=== PATIENT | female | born 1995 | race Caucasian/White ===

== ENCOUNTER 2024-07-14 08:35 | Emergency (ER) | payer OTHER, SELFPAY ==
[2024-07-14 08:49] VITALS: BP 130/96
--- NOTE | 2024-07-14 08:52 | ED.GENMED ---
ED Provider Triage
<Graham Lazar PA-C - Last Filed: 07/14/24 08:53>
-
Patient seen by provider in Triage?: Seen in Triage
Attestation: A medical screening examination has been initiated by a qualified medical provider. Based on the assessment performed at this time, it has been determined that an emergent medical condition may exist and the patient has been informed
that further medical evaluation and possible additional diagnostic testing may be needed.
HPI: 28-year-old female presents for evaluation of right lower quadrant abdominal pain. Pain began in the left with migrated to the right over the past 24 hours. Had diarrhea for the past 2 days but none today. No nausea or vomiting. Prior
abdominal surgery includes right inguinal hernia. No fevers or chills. No hematochezia
GENERAL: Alert , in no apparent distress
EYE: No visual abnormalities.
NECK: Trachea midline
ENT: No visible abnormalities.
LUNGS: No acute respiratory distress
NEUROLOGICAL: Alert and oriented
SKIN: Skin intact. No visible changes.
MUSCULOSKELETAL: Moving extremities normally
PSYCH: Normal and appropriate interaction.
This is a medical evaluation conducted in person to initiate diagnostic evaluation and provide initial therapeutics. Please see further documentation by the treating clinician.
History of Present Illness
<Graham Lazar PA-C - Last Filed: 07/14/24 08:53>
General
Chief Complaint: Abdominal Pain
Time Seen by Provider: 07/14/24 10:23
<Mimi Chambers PA-C - Last Filed: 07/14/24 15:40>
General
Source: patient
Exam Limitations: none
History of Present Illness
History of Present Illness:
28yoF with no significant past medical history presenting for evaluation of abdominal pain. Patient started with diarrhea 2-3 days ago as well as pain in her left lower quadrant. She initially thought she may have an ovarian cyst as she has a
history of this. The pain migrated to the right lower quadrant yesterday. Pain is worse with movement and coughing. She is also having some discomfort in her right lower back. Diarrhea has resolved. She had the urge to urinate frequently last
night but denies any dysuria. She denies any fevers, nausea, vomiting, vaginal bleeding, vaginal discharge. Previous abdominal surgeries include a right inguinal hernia repair as a child.
Phy Exam
<Mimi Chambers PA-C - Last Filed: 07/14/24 15:40>
General Physical Exam
General Presentation: well appearing and no apparent distress
General age: appears stated age
General Skin: warm and dry
General Habitus: normal
General Mental: alert
ENT Exam
ENT Exam: normocephalic
Pulmonary Exam
Pulmonary Exam: no respiratory distress
Gastrointestinal Exam
Gastrointestinal Exam: soft, non distended and other (+Mild RLQ tenderness. Abdomen soft, non-distended. No rebound or guarding noted. )
Neurological Exam
Neurological Exam: alert
Geoff Coma Scale
Eye Opening: Spontaneous
Verbal Response: Oriented
Motor Response: Obeys Commands
GCS Total Score: 15
Skin Exam
Skin Exam: normal color and warm/dry
Psychiatric Exam
Psychiatric Exam: normal mood/affect
Course
<Graham Lazar PA-C - Last Filed: 07/14/24 08:53>
Orders/Labs/Results
Orders:
Orders
07/14/24 08:52
CT Abd/Pel (IV only)-[facility] only Urgent
Comment:
Reason For Exam: RLQ pain
07/14/24 08:53
Test Result ONCE
07/14/24 09:00
Complete Blood Count/With Diff Urgent
Comprehensive Metabolic Panel Urgent
HCG, Serum Qualitative Screen Urgent
Lipase Urgent
07/14/24 11:09
Pelvis & Transvaginal US [US Pelvis W Transvag Combined] Urgent
Comment:
Reason For Exam: lower abd pain, abnormal CT
07/14/24 12:41
Urinalysis Reflex To Culture Urgent
Date Specimen was Collected: 07/14/24
Time Specimen was Collected: 11:19
Abnormal Lab Results
07/14/24
09:00
Glucose 104 H mg/dl
(70-99)
07/14/24 09:00
07/14/24 09:00
Vital Signs
Initial and Last Documented VS:
Initial Vital Signs
Temp Pulse Resp BP Pulse Ox
99.7 F 91 16 130/96 98
07/14/24 08:49 07/14/24 08:49 07/14/24 08:49 07/14/24 08:49 07/14/24 08:49
Last Documented Vital Signs
Temp Pulse Resp BP Pulse Ox
99.7 F 73 18 113/72 96
07/14/24 08:49 07/14/24 13:55 07/14/24 13:55 07/14/24 13:55 07/14/24 13:55
Juliánlt;Mimi Chambers PA-C - Last Filed: 07/14/24 15:40>
Orders/Labs/Results
Orders:
Orders
07/14/24 08:52
CT Abd/Pel (IV only)-[facility] only Urgent
Comment:
Reason For Exam: RLQ pain
07/14/24 08:53
Test Result ONCE
07/14/24 09:00
Complete Blood Count/With Diff Urgent
Comprehensive Metabolic Panel Urgent
HCG, Serum Qualitative Screen Urgent
Lipase Urgent
07/14/24 11:09
Pelvis & Transvaginal US [US Pelvis W Transvag Combined] Urgent
Comment:
Reason For Exam: lower abd pain, abnormal CT
07/14/24 12:41
Urinalysis Reflex To Culture Urgent
Date Specimen was Collected: 07/14/24
Time Specimen was Collected: 11:19
Abnormal Lab Results
07/14/24
09:00
Glucose 104 H mg/dl
(70-99)
07/14/24 09:00
07/14/24 09:00
Vital Signs
Initial and Last Documented VS:
Initial Vital Signs
Temp Pulse Resp BP Pulse Ox
99.7 F 91 16 130/96 98
07/14/24 08:49 07/14/24 08:49 07/14/24 08:49 07/14/24 08:49 07/14/24 08:49
Last Documented Vital Signs
Temp Pulse Resp BP Pulse Ox
99.7 F 73 18 113/72 96
07/14/24 08:49 07/14/24 13:55 07/14/24 13:55 07/14/24 13:55 07/14/24 13:55
<Mimi Chambers PA-C - Last Filed: 07/14/24 15:40>
MDM/Problems Addressed
Differential Diagnosis Includes:
28yoF here with RLQ pain. Started with LLQ pain and diarrhea a few days ago. Pain has now migrated to the RLQ. VSS. She is well appearing in no distress. No signs of peritonitis on abdominal exam. Differential diagnosis includes but is not limited
to: appendicitis, ovarian cyst, colitis, diverticulitis, UTI, kidney stone, gastroenteritis
Initial ED plan: Abdominal labs obtained in triage which are unremarkable. Check UA and CT abdomen. She declines analgesics.
<Mimi Chambers PA-C - Last Filed: 07/14/24 15:40>
*Critical Care Note
Total Time (30-74mins, 75-104mins- exclusive of procedures): Not Applicable
<Mimi Chambers PA-C - Last Filed: 07/14/24 15:40>
Update Note
Update Note:
UA bland without signs of infection. CT shows a normal appendix with suspected ovarian cysts. A follow-up pelvic ultrasound was obtained which confirms bilateral ovarian cyst. Flow seen bilaterally. There is some free fluid in the right adnexa
suggesting recent partial rupture which is likely the cause of her pain. Patient not requiring any pain medications in ED. She is stable for discharge. Supportive care discussed. Advised close follow-up with [facility]. ED return precautions
discussed. Patient in agreement with plan and was discharged in stable condition.
ED Attending Note
<Graham Lazar PA-C - Last Filed: 07/14/24 08:53>
-
Portions of this chart may have been created with voice recognition software.� Occasional wrong word or��sound alike� substitutions may have occurred due to the inherent limitations of voice recognition software.
Discharge Plan
Departure
Patient Disposition: Home (Routine Discharge)
Date of Disposition: 07/14/24
Time of Disposition: 13:31
Patient with high blood pressure during this ER visit?: No
Discharge Problem:
Bilateral ovarian cysts
Instructions: Ovarian cyst - ED discharge instructions
Referrals:
Shruthi Gavin MD [Active] -
Shante Decker DO [Family Provider] -
Activity Restrictions/Additional Instructions:
Apply heat to affected area. Take Tylenol and ibuprofen as needed for pain.
Please follow-up with gynecology. Return to the ER with any worsening symptoms or severe pain.
Interventions
Interventions:
*Risk Screen - Suicide Last Done: 07/14/24 08:53
*General Assessment Last Done: 07/14/24 11:27
*Neglect/Abuse Screening Last Done: 07/14/24 08:53
*ED COVID-19 Vaccine History Last Done: 07/14/24 11:27
*Nursing Disposition Last Done: 07/14/24 13:55
FR-[id number] Assessment Last Done: 07/14/24 11:27
Discharge Date and Time
Discharge Date/Time: 07/14/24 13:59
Print Language: ITALIAN
[2024-07-14 09:19] LABS: % Basophils 0.5 % (0-2); % Eosinophils 2.7 % (0-6); % Immature Granulocytes 0.2 % (0-0.5); % Monocytes 7.4 % (1.7-9.3); % Neutrophils 63.2 % (42.2-75.2); Absolute Eosinophils 0.2 10^3/uL (0-0.7); Absolute Lymphocytes 1.7 10^3/uL (1.2-3.4); Absolute Monocytes 0.5 10^3/uL (0.1-0.6); Absolute Neutrophils 4.2 10^3/uL (1.4-6.5); Hematocrit 44.1 % (37.0-47.0); Mean Corpuscular Hgb 28.5 pg (27.0-31.0); Mean Corpuscular Volume 83.7 fL (81.0-99.0); Mean Platelet Volume 9.4 fL (7.4-10.4); Nucleated Red Blood Cells % 0 %; Platelet Count 261 10^3/uL (130-400); Red Blood Cell Count 5.27 10^6/uL (4.20-5.40); Red Cell Dist. Width 12.6 % (11.5-14.5); White Blood Cell Count 6.6 10^3/uL (4.8-10.8)
[2024-07-14 09:35] LABS: HCG, Serum Qualitative Screen Negative
[2024-07-14 09:42] LABS: ALT (SGPT) 22 U/L (0-35); AST (SGOT) 21 U/L (14-36); Albumin 4.8 g/dl (3.5-5.0); Alkaline Phosphatase 56 U/L (38-126); Blood Urea Nitrogen 15 mg/dl (7-17); Carbon Dioxide 24 mmol/L (22-30); Chloride 104 mmol/L (98-107); Glucose 104 mg/dl (70-99); Lipase 77 U/L (23-300); Potassium 4.3 mmol/L (3.5-5.1); Sodium 137 mmol/L (135-145); Total Bilirubin 0.4 mg/dl (0.2-1.3); Total Protein 7.9 g/dl (6.3-8.2); eGFR > 60.00
[2024-07-14 12:57] LABS: Urine Albumin Negative (Neg - Trace); Urine Bilirubin Negative (Negative); Urine Character Clear (Clear); Urine Color Yellow; Urine Glucose Negative (Negative); Urine Ketone Negative (Negative); Urine Leukocyte Negative (Negative); Urine Nitrite Negative (Negative); Urine Occult Blood Negative (Negative); Urine Specific Gravity 1.005 (<1.030); Urine Urobilinogen Negative (Neg - 1+)
[2024-07-14 13:55] VITALS: BP 113/72
== END 2024-07-14 13:59 | disposition home or self-care (01) ==
LOC: EMR 08:35
PROVIDERS: Physician Assistant; EMERGENCY PHYSICIAN Emergency Medicine; FAMILY PHYSICIAN Family Medicine
DX: N83.201 Unspecified ovarian cyst, right side (principal); N83.202 Unspecified ovarian cyst, left side
CPT/HCPCS: 99285; 74177; 76830; 76856; 80053; 81003; 83690; 84703; 85025; Q9967